=== PATIENT | male | born 1980 | race Caucasian/White ===

== ENCOUNTER 2019-10-13 08:50 | Outpatient (CLI) | payer MEDICARE, MEDICAID, SELFPAY | END 2019-10-13 08:51 | disposition home or self-care (01) | LOC: ANHAUDIO 08:51 | PROVIDERS: PCP Family Medicine; Visit Provider Family Medicine | DX: H90.3 Sensorineural hearing loss, bilateral (principal) | CPT/HCPCS: 92557; 92567 ==

== ENCOUNTER 2019-11-10 13:00 | Outpatient (RCR) | payer MEDICAID, SELFPAY | END 2019-11-10 23:59 | disposition home or self-care (01) | LOC: ANHAUDIO 13:00 | PROVIDERS: PCP Family Medicine; Visit Provider Family Medicine | DX: Z46.1 Encounter for fitting and adjustment of hearing aid (principal) | CPT/HCPCS: V5014; V5160; V5260 ==

== ENCOUNTER 2020-10-09 09:35 | Outpatient (CLI) | payer MEDICARE, MEDICAID, SELFPAY | END 2020-10-09 09:36 | disposition home or self-care (01) | LOC: ANHAUDIO 09:40 | PROVIDERS: PCP Family Medicine; Visit Provider Family Medicine | DX: H90.3 Sensorineural hearing loss, bilateral (principal) | CPT/HCPCS: 92557; 92567 ==

== ENCOUNTER 2020-12-26 14:32 | Outpatient (RCR) | payer MEDICARE, MEDICAID, SELFPAY | END 2020-12-26 23:59 | disposition home or self-care (01) | LOC: ANHAUDIO 14:32 | PROVIDERS: PCP Family Medicine; Visit Provider Family Medicine | DX: Z46.1 Encounter for fitting and adjustment of hearing aid (principal) | CPT/HCPCS: 99199 ==

== ENCOUNTER 2021-09-26 14:36 | Emergency (ER) | payer MEDICARE, MEDICAID, SELFPAY ==
[2021-09-26 14:39] VITALS: BP 143/80; PULSE 73; RESP 18; TEMP 37.5; O2SAT 100
--- NOTE | 2021-09-26 14:51 | ED.SKABFB ---
HPI - Skin/Abscess/Foreign Bdy General Chief complaint: Wound/Laceration Stated complaint: right thumb infection Time Seen by Provider: 09/26/21 14:51 Source: patient and RN notes reviewed Mode of arrival: ambulatory Limitations: no limitations History of Present Illness HPI narrative: 41-year-old male presents to the [facility] with right thumb infection for the last 3 days. Patient lives in a [facility], they have been soaking it every 2 hours while awake and Epson salt and warm water. Caregiver states That caregiver states he has been picking at his nail and had a hangnail about a week ago. Related Data Home Medications Medication Instructions Recorded Confirmed allopurinol 300 mg tablet 300 mg PO DIRECTED 09/26/21 09/26/21 buspirone 5 mg tablet 5 mg PO DIRECTED 09/26/21 09/26/21 rosuvastatin 10 mg tablet 10 mg PO DIRECTED 09/26/21 09/26/21 sertraline 100 mg tablet 100 mg PO DIRECTED 09/26/21 09/26/21 Allergies Allergy/AdvReac Type Severity Reaction Status Date / Time No Known Allergies Allergy Unverified 09/26/21 14:58 Review of Systems Review of Systems: All systems reviewed & are unremarkable except as noted in HPI and below Constitutional: Constitutional: Reports no additional constitutional complaints, Denies chills and Denies fever(s) Eyes: Eyes: Reports no additional eye complaints ENT: Reports system reviewed and no additional complaints, except as documented Cardiovascular: Cardiovascular: Reports no additional cardiovascular complaints Respiratory: Respiratory: Reports no additional respiratory complaints Gastrointestinal: Gastrointestinal: Reports no additional gastrointestinal complaints Musculoskeletal: Musculoskeletal: Reports no additional musculoskeletal complaints Integumentary/Breasts: Skin/Breast: Reports as per HPI and Reports erythema (Distal right thumb) Neurologic: Reports system reviewed and no additional complaints, except as documented Psychiatric: Psychiatric: Reports no additional psychiatric complaints Allergic/Immunologic: Allergic/Immunologic: Reports no additional allergic/immunologic complaints [facility] Past Medical History Medical History (Updated 09/26/21 @ 19:29 by Saumya Prince APRN) Anxiety and depression High cholesterol Surgical History Surgical History (Updated 09/26/21 @ 19:29 by Saumya Prince APRN) No pertinent past surgical history Social History Social History (Updated 09/26/21 @ 19:30 by Saumya Prince APRN) Living arrangements: [facility] Gender identity (if verbalized by the patient): Male Comments At the time of my signature, I reviewed and agree with the nursing past medical, surgical, social, and family history. There is no relevant family history pertinent to the patient complaint. Exam Const: General: healthy appearing, no acute distress and alert Nutritional Appearance: well nourished Orientation/consciousness: patient oriented x3 Limitations: no limitations HENMT: Head: normal to inspection Ears: external ears normal Eyes: General: appearance normal, both eyes and all related structures Pupils: Equal, round and reactive pupils present Neck: Neck: normal visual inspection, no lymphadenopathy and no meningeal signs Chest: Chest palpation & inspection: normal inspection of the chest Resp: Effort & Inspection: normal respiratory effort and no use of accessory muscles Auscultation: clear to auscultation bilaterally, no crackles, no rales, no rhonchi and no wheezes Cardio: Rate: regular rate Rhythm: regular rhythm GI: GI Palp: Yes Soft to palpation and No Tenderness to palpation present (GI) Back/Spine/Pelvis: Cervical Spine: normal cervical lordosis Thoracic/Lumbar Spine: thoracic and lumbar spine normal to inspection Skin: General skin exam: normal color Rashes: no rashes Wounds: no wounds Other: Redness, swelling and abscess noted to the surrounding tissue of the right thumb nail Neuro: Gene
== END 2021-09-26 15:53 | disposition home or self-care (01) ==
PROVIDERS: Emergency Provider Nurse Practitioner
DX: L03.011 Cellulitis of right finger (principal); E78.00 Pure hypercholesterolemia, unspecified; F41.9 Anxiety disorder, unspecified; F32.A Depression, unspecified
CPT/HCPCS: 10060; 87070; 87075; 87147; 87181; 87186; 87205; 99213; G0463

== ENCOUNTER 2021-12-10 09:17 | Outpatient (CLI) | payer MEDICARE, MEDICAID, SELFPAY | END 2021-12-10 09:18 | disposition home or self-care (01) | LOC: ANHAUDIO 09:19 | PROVIDERS: Referring Provider Family Medicine; Visit Provider Family Medicine | DX: H90.3 Sensorineural hearing loss, bilateral (principal) | CPT/HCPCS: 92557; 92567 ==

== ENCOUNTER 2022-10-08 10:34 | Outpatient (CLI) | payer MEDICARE, MEDICAID, SELFPAY | END 2022-10-08 10:35 | disposition home or self-care (01) | LOC: ANHAUDIO 10:35 | PROVIDERS: PCP Physician Assistant; Visit Provider Physician Assistant | DX: H90.3 Sensorineural hearing loss, bilateral (principal) | CPT/HCPCS: 92557; 92567 ==

== ENCOUNTER 2022-11-02 09:40 | Emergency (ER) | payer MEDICARE, MEDICAID, SELFPAY ==
[2022-11-02 09:54] VITALS: BP 111/71; PULSE 70; RESP 20; TEMP 36.5; O2SAT 96
--- NOTE | 2022-11-02 10:01 | ED.SKABFB ---
HPI - Skin/Abscess/Foreign Bdy General Chief complaint: Extremity Problem,Nontraumatic Stated complaint: left finger Time Seen by Provider: 11/02/22 10:02 Source: patient Mode of arrival: ambulatory Limitations: no limitations History of Present Illness HPI narrative: 42-year-old male presents with staff member from [facility] with complaint redness, swelling to left index finger. History paronychia. 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 Afebrile. symptoms for 2-3 days. All systems reviewed and negative except as noted above. Related Data Home Medications Medication Instructions Recorded Confirmed allopurinol 300 mg tablet 300 mg PO DIRECTED 09/26/21 11/02/22 buspirone 5 mg tablet 5 mg PO DIRECTED 09/26/21 11/02/22 rosuvastatin 10 mg tablet 10 mg PO DIRECTED 09/26/21 11/02/22 sertraline 100 mg tablet 100 mg PO DIRECTED 09/26/21 11/02/22 Allergies Allergy/AdvReac Type Severity Reaction Status Date / Time No Known Allergies Allergy Verified 11/02/22 09:55 Review of Systems Review of Systems: CONSTITUTIONAL: Denies fever, chills, or sweats. EYES: Denies visual changes, redness, or discharge. ENT: Denies rhinorrhea, congestion, sore throat, or otalgia. CARDIOVASCULAR: Denies chest pain, palpitations, or edema. RESPIRATORY: Denies cough or dyspnea. GASTROINTESTINAL: Denies abdominal pain, nausea, vomiting, or diarrhea. GENITOURINARY: Denies dysuria or hematuria. SKIN: Denies rash or itching. Reports redness, swelling to left index finger. MUSCULOSKELETAL: Denies back pain, joint pain, or myalgia. NEUROLOGIC: Denies headache, numbness, or weakness. PSYCHIATRIC: Denies anxiety or depression. All other systems reviewed are negative, except as documented in HPI. [facility] Past Medical History Medical History (Updated 11/02/22 @ 10:11 by Marley Humphrey NP) Anxiety and depression High cholesterol Surgical History Surgical History (Updated 09/26/21 @ 19:29 by Saumya Prince APRN) No pertinent past surgical history Social History Social History (Updated 09/26/21 @ 19:30 by Saumya Prince APRN) Living arrangements: [facility] Gender identity (if verbalized by the patient): Male Comments At time of signature, agree with nursing past medical, surgical, social and family history. There is no relevant family history pertinent to the presenting complaint. Exam Narrative: GENERAL: This is a well-nourished, well-developed patient, in no apparent distress. HEAD: normocephalic, atraumatic. EYES: PERRL. Sclera clear/white. Vision is grossly intact. EARS: External ears normal NOSE: External nose normal NECK: Neck supple, non-tender without lymphadenopathy, masses or thyromegaly. CARDIOVASCULAR: Regular rate and rhythm without murmurs, gallops, or rubs. RESPIRATORY: Clear to auscultation. Breath sounds equal bilaterally. No wheezes, rales, or rhonchi. SKIN: warm, Dry, intact with no suspicious lesions or rash, good texture and turgor. erythema and swelling to lateral aspect L index finger cuticle with yellowing under skin concerning for pus NEURO: awake, alert, and oriented to person, place and time. There were no obvious focal neurologic abnormalities. EXTREMITIES: No joint tenderness, effusion, or edema noted. Course Course Level of Care: Express Care Visit Vital Signs Vital signs: Vital Signs Temperature 36.5 C 11/02/22 09:54 Pulse Rate 70 11/02/22 09:54 Respiratory Rate 20 11/02/22 09:54 Blood Pressure 111/71 11/02/22 09:54 Pulse Oximetry 96 11/02/22 09:54 Oxygen Delivery Room Air 11/02/22 09:54 Temperature 36.5 C 11/02/22 09:54 Pulse Rate 70 11/02/22 09:54 Respiratory Rate 20 11/02/22 09:54 Blood Pressure 111/71 11/02/22 09:54 Pulse Oximetry 96 11/02/22 09:54 Oxygen Delivery Room Air 11/02/22 09:54 reviewed Procedures Abscess I/D upper extremity: Date of Incision: 11/02/22 Time of Incisio
== END 2022-11-02 10:15 | disposition home or self-care (01) ==
PROVIDERS: Emergency Provider Nurse Practitioner Family; PCP Physician Assistant
DX: L03.012 Cellulitis of left finger (principal); E78.00 Pure hypercholesterolemia, unspecified; F41.9 Anxiety disorder, unspecified; F32.A Depression, unspecified
CPT/HCPCS: 10060; 99213; G0463

== ENCOUNTER 2023-03-03 13:19 | Emergency (ER) | payer MEDICARE, MEDICAID, SELFPAY ==
[2023-03-03 13:31] VITALS: BP 128/64; PULSE 78; RESP 16; TEMP 36.8; O2SAT 97
--- NOTE | 2023-03-03 13:41 | ED.EXTPRO ---
HPI - Extremity Problem General Chief complaint: Extremity Problem,Nontraumatic Stated complaint: Left Hand Finger Pain Source: patient Mode of arrival: ambulatory Limitations: no limitations History of Present Illness HPI Narrative: 43 y/o male presented for c/o left ring finger pain with redness, green discoloration and swelling around the cuticle. Onset 3 days. No treatment prior to arrival. Denies any other locations of skin changes. Hx paronychia. Related Data Home Medications Medication Instructions Recorded Confirmed allopurinol 300 mg tablet 300 mg PO DIRECTED 09/26/21 03/03/23 buspirone 5 mg tablet 5 mg PO DIRECTED 09/26/21 03/03/23 rosuvastatin 10 mg tablet 10 mg PO DIRECTED 09/26/21 03/03/23 sertraline 100 mg tablet 100 mg PO DIRECTED 09/26/21 03/03/23 Allergies Allergy/AdvReac Type Severity Reaction Status Date / Time No Known Allergies Allergy Verified 03/03/23 13:24 Review of Systems Review of Systems: CONSTITUTIONAL: Denies body aches, fever, chills, or sweats. EYES: Denies visual changes, redness, or discharge. ENT: Denies rhinorrhea, congestion CARDIOVASCULAR: Denies chest pain, palpitations, or edema. RESPIRATORY: Denies cough or dyspnea. GASTROINTESTINAL: Denies abdominal pain, nausea, vomiting, or diarrhea. SKIN: reports redness and swelling to the skin around the cuticle of the left ring finger MUSCULOSKELETAL: Denies back pain, joint pain, or myalgia. NEUROLOGIC: Denies headache, numbness, tingling, or weakness. [facility] Past Medical History Medical History (Updated 03/03/23 @ 13:57 by Crystal Zhang APRN) Anxiety and depression Down syndrome High cholesterol Surgical History Surgical History (Updated 09/26/21 @ 19:29 by Saumya Prince APRN) No pertinent past surgical history Social History Social History (Updated 09/26/21 @ 19:30 by Saumya Prince APRN) Living arrangements: custodial Gender identity (if verbalized by the patient): Male Comments At time of signature, I have reviewed and agree with nursing past medical, surgical, social and family history unless otherwise noted. Please see nursing chart for further information. There is no relevant family history pertinent to the presenting complaint Exam Narrative: GENERAL: Well-appearing HEAD: Normocephalic, atraumatic. EYES: conjunctivae clear, and EOMI. ENT: Mucous membranes moist. Oropharynx without edema, erythema or lesions. NECK: Supple. No lymphadenopathy CHEST: Clear to auscultation. HEART: Regular rate and rhythm. SKIN: Warm, dry. left 4th digit with paronychia. Skin is intact. Nail bed is intact. NEURO: Alert and oriented x3. Course Course Emergency Course: Patient is aware of diagnosis, understands and agrees to treatment plan. Anticipatory guidance given. Patient agrees to follow-up as directed and is aware of reasons to seek care at the emergency department. Portions of this record may have been created with voice recognition software Level of Care: Express Care Visit Vital Signs Vital signs: Vital Signs Temperature 98.3 F 03/03/23 13:31 Pulse Rate 78 03/03/23 13:31 Respiratory Rate 16 03/03/23 13:31 Blood Pressure 128/64 03/03/23 13:31 Pulse Oximetry 97 03/03/23 13:31 Oxygen Delivery Room Air 03/03/23 13:31 Temperature 98.3 F 03/03/23 13:31 Pulse Rate 78 03/03/23 13:31 Respiratory Rate 16 03/03/23 13:31 Blood Pressure 128/64 03/03/23 13:31 Pulse Oximetry 97 03/03/23 13:31 Oxygen Delivery Room Air 03/03/23 13:31 Reviewed Procedures Abscess I/D Left 4th digit paronychia: Date of Incision: 03/03/23 Technique: needle aspiration (#18g) Irrigation: No Packing used?: none I&D Results: Pus Abcess I&D Additional Comments: The procedure and its alternatives were reviewed with patient. Risks were reviewed with patient including infection and damage to nearby structu
== END 2023-03-03 14:00 | disposition home or self-care (01) ==
PROVIDERS: Emergency Provider Nurse Practitioner Family; PCP Family Medicine
DX: L03.012 Cellulitis of left finger (principal); E78.00 Pure hypercholesterolemia, unspecified; Q90.9 Down syndrome, unspecified; F41.9 Anxiety disorder, unspecified; F32.A Depression, unspecified
CPT/HCPCS: 10060; 99213; G0463